=== PATIENT | female | born 1985 | race Caucasian/White ===

== ENCOUNTER → 2017-07-14 | Outpatient (CLI) | payer OTHER ==
[2017-07-14 08:43] LABS: ADD MAN DIFF? NO
[2017-07-14 08:56] LABS: BASO % 0 % (0-3); EOS # 0.1 x10^3/uL (0.0-0.7); EOS % 1 % (0-3); HEMATOCRIT 36.8 % (36.0-47.0); HEMOGLOBIN 11.9 g/dL (12.0-15.5); LYMPH # 2.2 x10^3/uL (1.0-4.8); LYMPH % 16 % (24-48); MEAN CORPUSCULAR HEMOGLOBIN 27 pg (25-35); MEAN CORPUSCULAR HGB CONC 32 g/dL (31-37); MEAN CORPUSCULAR VOLUME 83 fL (79-100); MONO # 0.9 x10^3/uL (0.0-1.1); MONO % 7 % (0-9); NEUT # 10.4 x10^3uL (1.8-7.7); NEUT % 76 % (31-73); PLATELET COUNT 267 x10^3/uL (140-400); RED BLOOD COUNT 4.45 x10^6/uL (3.50-5.40); RED CELL DISTRIBUTION WIDTH 13.2 % (11.5-14.5); WHITE BLOOD COUNT 13.7 x10^3/uL (4.0-11.0)
[2017-07-14 09:24] LABS: GLUCOSE 84 mg/dL (70-99)
[2017-07-14 09:38] LABS: FREE T4 0.92 ng/dL (0.76-1.46)
[2017-07-14 10:18] LABS: BILIRUBIN,URINE NEGATIVE (NEG); CLARITY,URINE TURBID; COLOR,URINE YELLOW; GLUCOSE,URINE NEGATIVE (NEG); NITRITE,URINE NEGATIVE (NEG); PH,URINE 5.5; PROTEIN,URINE NEGATIVE (NEG-TRACE); UROBILINOGEN,URINE 0.2 mg/dL (0.2 mg/dL)
[2017-07-14 10:20] LABS: AMORPHOUS SEDIMENT,UR PRESENT /HPF; BACTERIA,URINE FEW /HPF (0-FEW); RBC,URINE 0 /HPF (0-2); SQUAMOUS EPITHELIAL CELL,UR FEW /LPF; WBC,URINE OCC /HPF (0-4)
[2017-07-14 23:13] LABS: HIV ANTIBODY Non Reactive (Non Reactive)
[2017-07-15 01:13] LABS: HEP B SURFACE AG Negative (Negative)
[2017-07-15 07:27] LABS: RPR Non Reactive (Non Reactive)
[2017-07-16 01:10] LABS: RUBELLA IGG ANTIBODY 1.06 index (Immune >0.99)
[2017-07-20 21:09] LABS: AFP MOM 0.94 (.); AFP QUAD SCREEN Report (.); AFP VALUE 31.2 ng/mL (.); DIA MOM 0.51 (.); DIA VALUE 71.41 pg/mL (.); DSR 2ND TRIMESTER 1 IN 10000 (.); DSR BY AGE 1 IN 452 (.); GEST AGE ON COLLECTION DATE 17.7 WEEKS (.); HCG MOM 0.52 (.); HCG VALUE 11851 mIU/mL (.); INSULIN DEP DIABETES No (.); MATERNAL AGE AT EDD 32.9 YEARS (.); MULTIPLE GESTATION No (.); OSBR RISK 1 IN 10000 (.); RACE Caucasian (.); T18 RISK Not increased (.); TEST RESULTS: *Screen Negative* (.); UE3 MOM 1.09 (.); UE3 VALUE 1.24 ng/mL (.); WEIGHT 214 lbs (.)
== END | disposition home or self-care (01) ==
LOC: LAB 08:18
DX: Z34.82 Encounter for supervision of other normal pregnancy, second trimester (principal); Z3A.00 Weeks of gestation of pregnancy not specified
CPT/HCPCS: 36415; 81001; 81511; 82947; 84439; 84443; 84481; 85025; 86593; 86703; 86762; 86787; 86850; 86900; 86901; 87086; 87340

== ENCOUNTER 2018-07-08 19:05 | Emergency (ER) | payer OTHER ==
[~2018-07-08] VITALS: Ht 162.6 cm; Wt 112.0 kg
[2018-07-08 20:25] LABS: BILIRUBIN,URINE NEGATIVE (NEG); CLARITY,URINE CLEAR; COLOR,URINE YELLOW; NITRITE,URINE NEGATIVE (NEG); PROTEIN,URINE NEGATIVE (NEG-TRACE); UROBILINOGEN,URINE 0.2 mg/dL (0.2 mg/dL)
--- NOTE | 2018-07-08 20:26 | PHYS DOC ---
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 Review of Systems Review of Systems Constitutional: Denies fever or chills [] Eyes: Denies change in visual acuity, redness, or eye pain [] HENT: Denies nasal congestion or sore throat [] Neurologic: Denies headache, focal weakness or sensory changes [] Endocrine: Denies polyuria or polydipsia [] All other systems were reviewed and found to be within normal limits, except as documented in this note. Current Medications Current Medications Current Medications Medications (Trade) Dose Ordered Sig/Yasir Start Time Stop Time Status Last Admin Dose Admin Ketorolac Tromethamine (Toradol 15mg Vial) 15 mg 1X ONCE 07/08/18 21:00 07/08/18 21:01 DC 07/08/18 20:41 15 MG Allergies Allergies Allergies Coded Allergies Type Severity Reaction Last Updated Verified codeine Adverse Reaction Unknown 07/08/18 Yes Physical Exam Physical Exam Constitutional: Well developed, well nourished, no acute distress, non-toxic appearance. [] HENT: Normocephalic, atraumatic, bilateral external ears normal, oropharynx moist, no oral exudates, nose normal. [] Eyes: PERRLA, EOMI, conjunctiva normal, no discharge. [] Neck: Normal range of motion, no tenderness, supple, no stridor. [] Pulmonary: Normal respiratory effort no increased work of breathing no obvious chest wall trauma Abdomen: Bowel sounds normal, soft mild epigastric and right upper quadrant tenderness no murphys, no masses, no pulsatile masses. [] Skin: Warm, dry, no erythema, no rash. [] Extremities: No tenderness, no cyanosis, no clubbing, ROM intact, no edema. [] Neurologic: Alert and oriented X 3, normal motor function, normal sensory function, no focal deficits noted. [] Psychologic: Affect normal, judgement normal, mood normal. [] Current Patient Data Vital Signs Vital Signs Date Time Temp Pulse Resp B/P (MAP) Pulse Ox O2 Delivery O2 Flow Rate FiO2 07/08/18 22:00 92 16 148/62 (90) 98 Room Air 07/08/18 20:03 97.7 97.7 Lab Values Laboratory Tests Test 07/08/18 19:47 07/08/18 20:21 Urine Color Yellow Urine Clarity Clear Urine pH 6.0 Urine Specific [place] 1.015 Urine Protein Negative mg/dL (NEG-TRACE) Urine Glucose (UA) Negative mg/dL (NEG) Urine Ketones (Stick) Negative mg/dL (NEG) Urine Blood Negative (NEG) Urine Nitrite Negative (NEG) Urine Bilirubin Negative (NEG) Urine Urobilinogen Dipstick 0.2 mg/dL (0.2 mg/dL) Urine Leukocyte Esterase Moderate (NEG) Urine RBC 0 /HPF (0-2) Urine WBC 1-4 /HPF (0-4) Urine Squamous Epithelial Cells Occ /LPF Urine Bacteria Few /HPF (0-FEW) Urine Test Negative (NEG) White Blood Count 11.2 x10^3/uL (4.0-11.0) H Red Blood Count 5.12 x10^6/uL (3.50-5.40) Hemoglobin 14.1 g/dL (12.0-15.5) Hematocrit 41.7 % (36.0-47.0) Mean Corpuscular Volume 81 fL (79-100) Mean Corpuscular Hemoglobin 28 pg (25-35) Mean Corpuscular Hemoglobin Concent 34 g/dL (31-37) Red Cell Distribution Width 13.6 % (11.5-14.5) Platelet Count 310 x10^3/uL (140-400) Neutrophils (%) (Auto) 60 % (31-73) Lymphocytes (%) (Auto) 30 % (24-48) Monocytes (%) (Auto) 8 % (0-9) Eosinophils (%) (Auto) 2 % (0-3) Basophils (%) (Auto) 1 % (0-3) Neutrophils # (Auto) 6.7 x10^3uL (1.8-7.7) Lymphocytes # (Auto) 3.3 x10^3/uL (1.0-4.8) Monocytes # (Auto) 0.9 x10^3/uL (0.0-1.1) Eosinophils # (Auto) 0.2 x10^3/uL (0.0-0.7) Basophils # (Auto) 0.1 x10^3/uL (0.0-0.2) Sodium Level 138 mmol/L (136-145) Potassium Level 4.1 mmol/L (3.5-5.1) Chloride Level 102 mmol/L (98-107) Carbon Dioxide Level 26 mmol/L (21-32) Anion Gap 10 (6-14) Blood Urea Nitrogen 14 mg/dL (7-20) Creatinine 1.0 mg/dL (0.6-1.0) Estimated GFR (Cockcroft-Gault) 63.9 BUN/Creatinine Ratio 14 (6-20) Glucose Level 91 mg/dL (70-99) Calcium Level 8.9 mg/dL (8.5-10.1) Total Bilirubin 0.1 mg/dL (0.2-1.0) L Aspartate Amino Transferase (AST) 20 U/L (15-37) Alanine Aminotransferase (ALT) 29 U/L (14-59) Alkaline Phosphatase 74 U/L (46-116) Total Protein 7.5 g/dL (6.4-8.2) Albumin 3.4 g/dL (3.4-5.0) Albumin/Globulin Ratio 0.8 (1.0-1.7) L Lipase 103 U/L (73-393) Laboratory Tests 07/08/18 20:21 Laboratory Tests 07/08/18 20:21 EKG EKG [] Radiology/Procedures Radiology/Procedures [] Impressions: Impression: Cholelithiasis. Sludge in the gallbladder. No findings of acute inflammation or biliary dilatation. Fatty infiltration of the liver. Electronically signed by: Abraham Rice MD (07/08/2018 9:27 PM) [facility] DICTATED and SIGNED BY: ABRAHAM RICE MD DATE: 07/08/182123 Course & Med Decision Making Course & Med Decision Making Pertinent Labs and Imaging studies reviewed. (See chart for details) []Cholelithiasis patient feels a little bit better in the emergency room we discussed options including more pain medication versus admission overnight for observation but she says she feels feel better she wants to try at home with oral hydration and pain medication as needed she has Lortab already at home and she was given the follow-up phone number for surgery return precautions were discussed including worsening pain persistent pain fever vomiting or any other concerns Dragon Disclaimer Dragon Disclaimer This electronic medical record was generated, in whole or in part, using a voice recognition dictation system. Departure Departure Impression: Primary Impression: Cholelithiasis Disposition: 01 HOME, SELF-CARE Condition: STABLE Referrals: BEATRIS AU MD (PCP) ENEDINA MATTHEWS MD Jul 08, 2018 20:26
[2018-07-08 20:33] LABS: U PREG PATIENT NEGATIVE (NEG)
[2018-07-08 20:34] LABS: BASO # 0.1 x10^3/uL (0.0-0.2); BASO % 1 % (0-3); EOS # 0.2 x10^3/uL (0.0-0.7); EOS % 2 % (0-3); HEMATOCRIT 41.7 % (36.0-47.0); HEMOGLOBIN 14.1 g/dL (12.0-15.5); LYMPH # 3.3 x10^3/uL (1.0-4.8); LYMPH % 30 % (24-48); MEAN CORPUSCULAR HEMOGLOBIN 28 pg (25-35); MEAN CORPUSCULAR HGB CONC 34 g/dL (31-37); MEAN CORPUSCULAR VOLUME 81 fL (79-100); MONO # 0.9 x10^3/uL (0.0-1.1); MONO % 8 % (0-9); NEUT # 6.7 x10^3uL (1.8-7.7); NEUT % 60 % (31-73); PLATELET COUNT 310 x10^3/uL (140-400); RED BLOOD COUNT 5.12 x10^6/uL (3.50-5.40); RED CELL DISTRIBUTION WIDTH 13.6 % (11.5-14.5); WHITE BLOOD COUNT 11.2 x10^3/uL (4.0-11.0)
[2018-07-08 20:36] LABS: BACTERIA,URINE FEW /HPF (0-FEW); RBC,URINE 0 /HPF (0-2); SQUAMOUS EPITHELIAL CELL,UR OCC /LPF
[2018-07-08 20:46] LABS: CALCIUM 8.9 mg/dL (8.5-10.1); GFR 63.9; POTASSIUM 4.1 mmol/L (3.5-5.1)
[2018-07-08 20:52] LABS: ALBUMIN 3.4 g/dL (3.4-5.0); ALBUMIN/GLOBULIN RATIO 0.8 (1.0-1.7); TOTAL BILIRUBIN 0.1 mg/dL (0.2-1.0); TOTAL PROTEIN 7.5 g/dL (6.4-8.2)
[2018-07-08] MEDS ORDERED: KETOROLAC 15 MG/ML VIAL. IV ONE (21:00)
--- NOTE | 2018-07-08 21:31 | RAD ---
Examination: ABDOMEN LTD History: multiple episodes of abd pain and nausea x 6 months
SMALL GALLSTONE AND DEBRIS SEEN WITHIN GB LUMEN
NORMAL CBD
GB WALL UPPER LIMITS OF NORM, NPO X <4HRS, NO TENDERNESS WHEN SCANNING
PANC NOT WELL VIS
FATTY LIVER
RK APPEARS NORMAL Comparison/Correlation: None Findings: Right upper quadrant ultrasound exam was performed. A small gallstone is present within the gallbladder. Sludge in the gallbladder is seen. No gallbladder wall thickening or pericholecystic fluid. Mild fatty infiltration of liver is present. No biliary dilatation. Proximal pancreas is unremarkable. Distal pancreas is obscured by bowel gas. Right kidney measures 11 cm x 5.3 cm x 5.6 cm. No right hydronephrosis. Impression: Cholelithiasis. Sludge in the gallbladder. No findings of acute inflammation or biliary dilatation. Fatty infiltration of the liver. Electronically signed by: Abraham Brady MD (07/08/2018 9:27 PM) [facility]
[2018-07-08 22:00] VITALS: BP 148/62
== END 2018-07-08 22:09 | disposition home or self-care (01) ==
LOC: ER 19:05
DX: K80.20 Calculus of gallbladder without cholecystitis without obstruction (principal); Z88.5 Allergy status to narcotic agent
CPT/HCPCS: 36415; 76705; 80053; 81001; 81025; 83690; 85025; 87086; 96374; 99284; J1885

== ENCOUNTER → 2018-07-23 | Outpatient (CLI) | payer OTHER ==
[2018-07-08 22:00] VITALS: BP 148/62
[2018-07-23 11:56] LABS: BASO % 1 % (0-3); EOS # 0.1 x10^3/uL (0.0-0.7); EOS % 2 % (0-3); HEMATOCRIT 44.2 % (36.0-47.0); HEMOGLOBIN 14.4 g/dL (12.0-15.5); LYMPH # 1.6 x10^3/uL (1.0-4.8); LYMPH % 29 % (24-48); MEAN CORPUSCULAR HEMOGLOBIN 27 pg (25-35); MEAN CORPUSCULAR HGB CONC 33 g/dL (31-37); MEAN CORPUSCULAR VOLUME 82 fL (79-100); MONO # 0.3 x10^3/uL (0.0-1.1); MONO % 6 % (0-9); NEUT # 3.6 x10^3uL (1.8-7.7); NEUT % 63 % (31-73); PLATELET COUNT 277 x10^3/uL (140-400); RED BLOOD COUNT 5.38 x10^6/uL (3.50-5.40); RED CELL DISTRIBUTION WIDTH 13.5 % (11.5-14.5); WHITE BLOOD COUNT 5.7 x10^3/uL (4.0-11.0)
[2018-07-23 12:42] LABS: ALBUMIN 3.8 g/dL (3.4-5.0); ALBUMIN/GLOBULIN RATIO 0.9 (1.0-1.7); CREATININE 0.9 mg/dL (0.6-1.0); GFR 72.1; POTASSIUM 4.1 mmol/L (3.5-5.1); TOTAL BILIRUBIN 4.5 mg/dL (0.2-1.0); TOTAL PROTEIN 8.1 g/dL (6.4-8.2)
[2018-07-23 12:48] LABS: FREE T4 1.16 ng/dL (0.76-1.46); THYROID STIM HORMONE (TSH) 1.091 uIU/mL (0.358-3.74)
== END | disposition home or self-care (01) ==
LOC: LAB 11:38
PROVIDERS: ATTEND Physician Assistant Medical
DX: R10.11 Right upper quadrant pain (principal); R63.5 Abnormal weight gain; R80.2 Orthostatic proteinuria, unspecified
CPT/HCPCS: 36415; 80053; 84439; 84443; 85025

== ENCOUNTER 2018-08-28 20:05 | Emergency (ER) | payer OTHER ==
[~2018-08-28] VITALS: Ht 162.6 cm; Wt 109.8 kg
[2018-08-28 20:15] VITALS: BP 118/79
--- NOTE | 2018-08-28 20:27 | PHYS DOC ---
Past Medical History Past Medical History: No Pertinent History (DEMETRIA BILL APRN) Past Surgical History: Other Additional Past Surgical Histo: thumb surgery as a child (DEMETRIA BILL APRN) Alcohol Use: None Drug Use: None (DEMETRIA BILL APRN) Adult General Chief Complaint Chief Complaint: TOE PROBLEM HPI HPI Patient is a 33 year old female who presents with intermittent throbbing 3 out of 10 right little toe pain that began yesterday at 10 PM after she stabbed her right little toe on a box. Patient did not have shoes on. (DEMETRIA BILL APRN) Review of Systems Review of Systems Constitutional: Denies fever or chills [] Musculoskeletal: Reports right little toe pain Integument: Denies rash or skin lesions [] Neurologic: Denies headache, focal weakness or sensory changes [] All other systems were reviewed and found to be within normal limits, except as documented in this note. (DEMETRIA BILL APRN) Allergies Allergies Allergies Coded Allergies Type Severity Reaction Last Updated Verified codeine Adverse Reaction Unknown Nausea and Vomiting 08/27/18 Yes (NOHEMI SPENCE DO) Physical Exam Physical Exam Constitutional: Well developed, well nourished, no acute distress, non-toxic appearance. [] Skin: Warm, dry, no erythema, no rash. [] Back: No tenderness, no CVA tenderness. [] Extremities: Right little toe with ecchymosis on the medial as well as ventral aspect of the toe. Tenderness diffusely throughout the toe. Patient able to flex and extend the toe but it's painful. +2 right pedal pulse. Cap refill less than 2 seconds the right little toe. Sensation intact. Neurologic: Alert and oriented X 3, normal motor function, normal sensory function, no focal deficits noted. [] Psychologic: Affect normal, judgement normal, mood normal. [] (DEMETRIA BILL APRN) Current Patient Data Vital Signs Vital Signs Date Time Temp Pulse Resp B/P (MAP) Pulse Ox O2 Delivery O2 Flow Rate FiO2 08/28/18 20:15 97.9 92 16 118/79 (92) 98 Room Air 97.9 (NOHEMI SPENCE DO) EKG EKG [] (DEMETRIA BILL APRN) Radiology/Procedures Radiology/Procedures [] (DEMETRIA BILL APRN) Course & Med Decision Making Course & Med Decision Making Pertinent Labs and Imaging studies reviewed. (See chart for details) This is a 33-year-old female patient presenting to the ED today to be evaluated for contusion of the right little toe. Right foot xrays interpreted by Dr. Spence noted for fifth toe distal phalanyx fx. toe was caity taped, provided orthopedic shoe by the ED RN, neurovascular exam intact, ice elevation encouraged. Follow-up with orthopedic doctor in the course of next week. (DEMETRIA BILL APRN) Dragon Disclaimer Dragon Disclaimer This electronic medical record was generated, in whole or in part, using a voice recognition dictation system. (DEMETRIA BILL APRN) Departure Departure Impression: Primary Impression: Fracture of fifth toe, right, closed Disposition: HOME, SELF-CARE Condition: STABLE Referrals: BEATRIS AU MD (PCP) FLOR BRISCOE MD follow up in 1 week Patient Instructions: Toe Fracture Additional Instructions: You have right fifth toe fracture. Ice and elevate the affected extremity. Take [id number] pain relievers as needed. Follow-up with orthopedic doctor provided in the next 7 days. Attending Signature Attending Signature I have reviewed the PA/HANDS PARTER's note and plan of care. I was available for consultation as needed during the patient's visit in the emergency department. I agree with the clinical impression, plan, and disposition. (NOHEMI SPENCE DO) Problem Qualifiers Primary Impression: Fracture of fifth toe, right, closed Encounter type: initial encounter Qualified Codes: S92.501A - Displaced unspecified fracture of right lesser toe(s), initial encounter for closed fracture DEMETRIA BILL APRN Aug 28, 2018 20:27 NOHEMI SPENCE DO Aug 29, 2018 04:29
--- NOTE | 2018-08-28 21:39 | RAD ---
FOOT RIGHT 3V (AP, oblique, lateral) INDICATION: Injury to 5th digit COMPARISON: None. FINDINGS: Lucency is seen through the base of the fifth middle phalanx only seen on the oblique view. Of note, the fifth mid and distal phalanges appear to be fused, a somewhat common occurrence. The joint spaces are maintained. Bony mineralization is normal for the patient's age. No significant soft tissue abnormality. No radiopaque foreign body. IMPRESSION: Lucency is seen through the base of the fifth middle phalanx only on the oblique view. There is soft tissue lucency seen on this oblique radiograph in the surrounding soft tissues and this apparent cortical lucency may be artifactual. A nondisplaced fracture is not excluded. Correlate for point tenderness in the region. Follow-up radiographs could be obtained in 8-10 days if symptoms persist. Electronically signed by: Adilson Amor MD (08/28/2018 9:36 PM) [facility]
== END 2018-08-28 21:13 | disposition home or self-care (01) ==
LOC: ER 20:05
DX: S92.501A Displaced unspecified fracture of right lesser toe(s), initial encounter for closed fracture (principal); Z88.5 Allergy status to narcotic agent; Y28.8XXA Contact with other sharp object, undetermined intent, initial encounter; Y93.89 Activity, other specified; Y92.89 Other specified places as the place of occurrence of the external cause; Y99.8 Other external cause status
CPT/HCPCS: 73630; 99283

== ENCOUNTER 2018-08-31 06:29 | Day surgery (SDC) | payer OTHER ==
[~2018-08-31] VITALS: Ht 175.3 cm; Wt 109.8 kg
[~2018-08-31 06:29] MED LIST: BISACODYL 10 MG SUPP.RECT. PR ONE; HEPARIN 1,000 UNIT in IV NORMAL SALINE 1,000 ML for SURG PERIOP IRR ONE; IBUPROFEN 200 MG TABLET. PO ONE
[2018-08-31] MEDS ORDERED: DEXAMETHASONE SOD PHOS 20 MG/5 ML VIAL. ONE (06:30)
[2018-08-31] MEDS ORDERED: ROCURONIUM 50 MG/5 ML VIAL. ONE (06:30)
[2018-08-31] MEDS ORDERED: PROPOFOL 20 ML IV ONE (06:30)
[2018-08-31] MEDS ORDERED: ONDANSETRON PF 4 MG/2 ML VIAL. ONE (06:30)
[2018-08-31] MEDS ORDERED: LIDOCAINE 2% PF 5 ML VIAL. ONE (06:30)
[2018-08-31] MEDS ORDERED: IOHEXOL 300 MG/ML 100ML VIAL. ONE (06:50)
[2018-08-31] MEDS ORDERED: BUPIVAC MPF-EPI 0.5%-1:200000 30 ML VIAL. ONE (06:50)
[2018-08-31 06:58] LABS: U PREG PATIENT NEGATIVE (NEG)
[2018-08-31] MEDS ORDERED: LIDOCAINE 1% PF 2 ML VIAL. ID PRN (07:00)
[2018-08-31] MEDS ORDERED: IV RINGERS,LACTATED 1000ML 1,000 ML IV SCH (07:00)
[2018-08-31] MEDS ORDERED: fentaNYL PF VIAL 100 MCG/2 ML VIAL IV PRN ×2 (07:00)
[2018-08-31] MEDS ORDERED: ONDANSETRON PF 4 MG/2 ML VIAL. IV PRN (07:00)
[2018-08-31] MEDS ORDERED: BISACODYL 10 MG SUPP.RECT. ONE (07:18)
[2018-08-31] MEDS ORDERED: SURGICEL HEMOSTAT 4X8 EACH. ONE (07:18)
[2018-08-31] MEDS ORDERED: fentaNYL PF VIAL 100 MCG/2 ML VIAL ONE (07:29)
[2018-08-31] MEDS ORDERED: MIDAZOLAM HCL/PF 2 MG/2 ML VIAL. ONE (07:32)
[2018-08-31] MEDS ORDERED: SEVOFLURANE 61 TO 120 MINUTES. IH ONE (07:32)
--- NOTE | 2018-08-31 07:47 | PDOC ---
SURGICAL PROGRESS NOTE Subjective 33 yo F with c/o episodic RUQ pain US c/w symptomatic cholelithiasis Pt also notes having elevated LFTS TO OR for laparoscopic cholecystectomy with cholangiogram, liver biopsy R/R/B/A d/w pt. Risks, including, but not limited to: bleeding, infection, damage to surrounding structures, risk of anesthesia, risk of open. She appears to understand, her questions are answered and she elects to proceed. Office note H&P reviewed and unchanged. Pt reexamined. Pt recently broke right 5th toe and prefers to not wear Tet, will do SCDs. Vital Signs Vital Signs Date Time Temp Pulse Resp B/P (MAP) Pulse Ox O2 Delivery O2 Flow Rate FiO2 08/31/18 06:53 97.4 92 18 127/83 97 Room Air 97.4 Labs Laboratory Tests Test 08/31/18 06:43 Urine Test Negative (NEG) Laboratory Tests Test 08/31/18 06:43 Urine Test Negative (NEG) ELISABETH MICHAELS MD Aug 31, 2018 07:47
[2018-08-31] MEDS ORDERED: NEOSTIGMINE 10 MG/10 ML VIAL. ONE (08:10)
[2018-08-31] MEDS ORDERED: GLYCOPYRROLATE 1 MG/5 ML VIAL. ONE (08:10)
[2018-08-31] MEDS ORDERED: KETOROLAC 30 MG/ML INJ FOR OR. INJ ONE (08:14)
[2018-08-31] MEDS ORDERED: ESMOLOL 100 MG/10 ML VIAL. IVP ONE (08:17)
--- NOTE | 2018-08-31 09:15 | RAD ---
Examination: CHOLANGIOGRAM INTRAOPERATIVE History: FL TIME =.10 MINUTES, 2 IMAGES SAVED, CHOLANGIOGRAMS IN OR WITH C-ARM. Comparison/Correlation: None Findings: Fluoroscopy was utilized for 0.1 minutes. 2 images provided. Images were obtained intraoperatively with the C-arm. On the T2 images provided, cholecystectomy clips are present at the right upper quadrant. No suspicious filling defect is definitely seen within the common bile duct or common hepatic duct. No extravasation of contrast identified in the right upper quadrant but evaluation is limited with overlying artifact. Impression: No suspicious filling defect involving the visualized common bile duct or common hepatic duct on images provided. Cholecystectomy. Electronically signed by: Abraham Brady MD (08/31/2018 9:12 AM) [id number]
[2018-08-31] MEDS: PROCHLORPERAZINE 10 MG/2 ML VIAL. IV PRN ×2 (09:43→11:00)
--- NOTE | 2018-08-31 10:06 | PDOC4 ---
OPERATIVE NOTE Date: Date: Aug 31, 2018 Pre-Op Diagnosis: Symptomatic cholelithiasis Post-Op Diagnosis: same Procedure Performed: laparoscopic cholecystectomy with cholangiogram, liver biopsy Surgeon: Ernie Michaels Anesthesia Type: GETA plus local Blood Loss: 50 Specimans Obtained: gallbladder, liver biopsy Findings: chronic scarring of gallbladder, morbid obesity, fatty liver, normal cholangiogram, cystic duct stones. Complications: none Operative Note: After obtaining informed consent, patient was taken to OR, induced under GETA and prepped in the usual fashion. 5 mm port placed umbilical and RUQ, 12 port placed epigastric, all under laparoscopic guidance. Abdominal cavity was explored and otherwise unremarkable. Adhesions taken down using sharp dissection. Liver biopsy obtained with endoshears and sent to pathology. Hemostasis obtained with cautery. Critical view dissected out and achieved. Cystic artery ligated with clips. Cholangiogram obtained via cystic duct and was normal. Cystic duct ligated with hemolok and clips. Gallbladder taken off fossa using cautery, placed in bag, delivered and sent to pathology for evaluation. Copious irrigation. No evidence of bleeding or other pathology. Ports removed without bleeding. Fascia repaired with 0 vicryl. Skin repaired with 4 0 monocryl. Dressing placed. Patient tolerated procedure well and sent to PACU in stable condition. All counts correct. Wound class is 3. ELISABETH MICHAELS MD Aug 31, 2018 10:06
[2018-08-31] MEDS ORDERED: HYDR-3164 PO (10:49)
[2018-08-31] MEDS ORDERED: DOCU-109 PO (10:49)
[2018-08-31 11:20] VITALS: BP 114/68
--- NOTE | 2018-09-02 10:09 | PATHOLOGY ---
[facility] Accession Number: [id number] . 01 Material submitted: . PART A: GALLBLADDER PART B: LIVER BIOPSY . 01 Clinical history: . Cholelithiasis . 02 Diagnosis: A. Gallbladder, laparoscopic cholecystectomy: - Cholelithiasis. - Chronic cholecystitis. . B. Liver, wedge biopsy: - Steatosis (Preliminary report). LBQ/09/02/2018 . 02 Comment: The final liver biopsy report findings are pending outside consultation. (JPM/db; 09/01/2018) . 02 Electronically signed: . Shukri Harper MD, Pathologist NPI- [id number] . 01 Gross description: . A. The specimen is received in formalin, labeled "Mayorga, Crystal, gallbladder", is a collapsed, focally disrupted gallbladder measuring 6.7 x 2.5 x 1.5 cm with a shaggy, forman-pink serosa. The lumen contains yellow-green mucoid material admixed with several fairly well circumscribed calculi measuring 1.5 x 1.0 x 0.5 cm in aggregate. The mucosa is forman-pink and granular and the wall has an average thickness of 0.2 cm. No discrete masses are identified. Sem Manager tissue is submitted in A1. . B. The specimen is received in formalin, labeled "Mayorga, Crystal, liver biopsy", is a wedge of liver parenchyma measuring 1.0 x 1.0 x 0.7 cm. The margin is inked black, serially sectioned and entirely submitted in B1. (SWS; 08/31/2018) SHS/SHS . 02 Pathologist provided ICD-10: K80.10, K76.0 . 02 CPT . 849788, 893099 Specimen Comment: A courtesy copy of this report has been sent to Specimen Comment: [phone], . Specimen Comment: Report sent to / DR AU Specimen Comment: A duplicate report has been generated due to demographic updates. Performed at: 01 [facility] [address] [id number] MD Gilbert Mckeon MD Phone: [phone] Performed at: 02 [facility] [address] [place], [place] [id number] MD Shukri Harper MD Phone: [phone]
== END 2018-08-31 11:20 | disposition home or self-care (01) ==
LOC: SURG 06:29
PROVIDERS: ATTEND Surgery
DX: K80.10 Calculus of gallbladder with chronic cholecystitis without obstruction (principal); K76.0 Fatty (change of) liver, not elsewhere classified; Z88.5 Allergy status to narcotic agent; Z98.890 Other specified postprocedural states; Z79.899 Other long term (current) drug therapy; Z80.3 Family history of malignant neoplasm of breast; Z83.3 Family history of diabetes mellitus; Z82.3 Family history of stroke; Z86.711 Personal history of pulmonary embolism
CPT/HCPCS: 47379; 47563; 74300; 81025; 88304; 88307; 88313; A7015; J0696; J0780; J1100; J1644; J1885; J2001; J2250; J2405; J2704; J2710; J3010; J3490; J7030; J7120; Q9967